=== PATIENT | female | born 1970 | race Caucasian/White ===

== ENCOUNTER 2024-11-30 00:12 | Inpatient (IN) | payer BC ==
[~2024-11-30] VITALS: Ht 162.6 cm; Wt 68.0 kg
[2024-11-30] VITALS (8 sets, daily range): BP systolic 128–181; BP diastolic 85–110; PULSE 91–116; RESP 18; O2SAT 99
[2024-11-30 00:54] LABS: ALANINE AMINOTRANSFERASE 26 U/L (12-78); ALBUMIN 4.8 G/DL (3.4-5.0); ALBUMIN/GLOBULIN RATIO 1.2 (1.1-1.5); ALKALINE PHOSPHATASE 75 IU/L (46-116); ANION GAP 12 (8-16); ASPARTATE AMINO TRANSFERASE 22 U/L (10-37); BILIRUBIN,TOTAL 0.6 MG/DL (0.1-1.0); BLOOD UREA NITROGEN 10 MG/DL (7-18); BUN/CREATININE RATIO 9.9 (10.0-20.0); CALCIUM 9.9 MG/DL (8.5-10.1); CHLORIDE 97 MMOL/L (99-107); CREATININE 1.01 MG/DL (0.40-0.90); GLUCOSE 119 MG/DL (70-104); POTASSIUM 3.9 MMOL/L (3.5-5.1); SODIUM 136 MMOL/L (135-145); TOTAL CARBON DIOXIDE 26.9 MMOL/L (24-32); TOTAL PROTEIN 8.9 G/DL (6.4-8.2); eCRCL 56 ML/MIN; eGFR 57 ML/MIN
[2024-11-30 00:57] LABS: MAGNESIUM 2.5 MG/DL (1.5-2.4)
[2024-11-30] MEDS ORDERED: potassium Cl 40MEQ/1/2NS 520ml 520 ML IV PRN (01:15)
[2024-11-30] MEDS ORDERED: mag hydrox/Alum hydrox/simeth 30ml oral suspension PO PRN (01:15)
[2024-11-30] MEDS ORDERED: acetaminophen 325mg tablet PO PRN (01:15)
[2024-11-30] MEDS ORDERED: magnesium Cl slow-release 64mg tablet PO PRN (01:15)
[2024-11-30] MEDS ORDERED: morphine 2 MG/ML inj. syringe IV PRN (01:15)
[2024-11-30] MEDS ORDERED: magnesium sulf-water 4G/100mL 100 ML IV PRN (01:15)
[2024-11-30] MEDS ORDERED: potassium Cl 20 mEq SR tablet PO PRN (01:15)
[2024-11-30] MEDS ORDERED: bisacodyl 10mg suppository rectal RC PRN (01:15)
[2024-11-30] MEDS ORDERED: magnesium sulf-water 2g/50mL 50 ML IV PRN (01:15)
[2024-11-30] MEDS ORDERED: magnesium hydroxide 30ml (MOM) UD suspension PO PRN (01:15)
[2024-11-30 01:20] LABS: C-REACTIVE PROTEIN < 0.05 MG/DL (0.0-0.5)
[2024-11-30] MEDS ORDERED: heparin 10,000 units/1 ML INJ IV ONE (01:30)
[2024-11-30] MEDS ORDERED: nitroGLYCERIN 0.4mg SUBLingual tab SL PRN ×2 (01:40→11:45)
[2024-11-30] MEDS ORDERED: DEXTROSE 15 GM of carb/4 tabs (each vial/BOTTLE has 4 tablets) PO PRN ×2 (02:00)
[2024-11-30] MEDS ORDERED: glucagon, human recombinant 1mg kit SUBCUT PRN (02:00)
[2024-11-30] MEDS ORDERED: dextrose 50%-water 50ml dispensing syringe IV PRN (02:00)
[2024-11-30] MEDS: MESSAGE TO NURSING IV ONE ×2 (02:01→08:36)
[2024-11-30] MEDS: aspirin 81mg tab.chew PO ONE (02:13)
[2024-11-30] MEDS: heparin 10,000 units/1 ML INJ IV ONE (02:20)
[2024-11-30] MEDS: normal saline 1000ml 1,000 ML IV SCH (02:21)
[2024-11-30] MEDS: heparin 25,000 UNIT/250ml bag 250 ML IV PRN (02:24)
[2024-11-30 02:50] LABS: HEMOGLOBIN A1C 6.4 % (4.5-6.2)
[2024-11-30] MEDS ORDERED: POTA10CA95 PO (02:52)
[2024-11-30] MEDS ORDERED: LOSA25TA41 PO (02:52)
[2024-11-30] MEDS ORDERED: INSU3INS2 SUBCUT (02:52)
[2024-11-30] MEDS ORDERED: METF-438 PO (02:52)
[2024-11-30] MEDS ORDERED: TRAZ-251 PO (02:52)
[2024-11-30 02:54] LABS: PROTHROMBIN TIME 10.6 SECONDS (9.0-12.0)
[2024-11-30 02:57] LABS: APTT 24 SECONDS (22-32)
[2024-11-30 03:02] LABS: POTASSIUM 3.9 MMOL/L (3.5-5.1)
[2024-11-30] MEDS: morphine 2 MG/ML inj. syringe IV PRN (03:15)
[2024-11-30 05:00] LABS: BILIRUBIN,URINE NEGATIVE (Neg); CLARITY,URINE CLEAR (Clear); COLOR,URINE YELLOW (Yellow); GLUCOSE, URINE NEGATIVE (Neg); KETONES,URINE 15 mg/dl (Neg); LEUKOCYTE ESTERASE ,URINE NEGATIVE (Neg); NITRITES, URINE NEGATIVE (Neg); OCCULT BLOOD,URINE SMALL (Neg); PH,URINE 7.5 (4.8-8.0); PROTEIN,URINE >=300 mg/dl (Neg); UA COLLECTION TYPE VOIDED; UROBILINOGEN,URINE 0.2 E.U/dL (0.2-1.0)
[2024-11-30 05:05] LABS: BACTERIA,URINE NONE SEEN /HPF (Neg); MUCUS STRANDS FEW /LPF (Neg); SQUAMOUS EPITHELIAL CELL,UR NONE SEEN /LPF (FEW); WBC,URINE 0-4 /HPF (0-4)
[2024-11-30] MEDS: INSULIN LISPRO 100 UNIT/ML INSULN.PEN MULTI-DOSE SQ SCH (07:00)
[2024-11-30] MEDS: dextrose 50%-water 50ml dispensing syringe IV PRN (07:54)
[2024-11-30] MEDS: aspirin 81mg, enteric-coated 1 TAB TABLET.DR PO SCH (08:07)
[2024-11-30] MEDS: docusate sod 100mg capsule PO SCH (08:07)
[2024-11-30] MEDS: metoprolol tartrate 25mg tablet PO SCH (08:07)
[2024-11-30] MEDS: heparin 10,000 units/1 ML INJ IV PRN (08:34)
[2024-11-30 10:06] LABS: BASOPHILS # (AUTO) 0.1 X10'3 (0-0.2); BASOPHILS % (AUTO) 0.5 % (0-1); EOSINOPHILS % (AUTO) 0.2 % (0-6); HEMATOCRIT 43.6 % (35.0-45.0); HEMOGLOBIN 14.4 g/dl (12.0-16.0); LYMPHOCYTES # (AUTO) 5.4 X10'3 (1.1-4.8); LYMPHOCYTES % (AUTO) 29.3 % (21-51); MEAN CORPUSCULAR HEMOGLOBIN 29.1 PG (27.0-31.0); MEAN CORPUSCULAR VOLUME 88.2 FL (78-98); MEAN PLATELET VOLUME 6.7 FL (7.4-10.4); MONOCYTES # (AUTO) 1.7 X10'3 (0-0.9); NEUTROPHILS # (AUTO) 11.2 X10'3 (1.8-7.7); PLATELET COUNT 465 X10'3 (140-440); RED BLOOD COUNT 4.94 X10'6 (4.20-5.60); WHITE BLOOD COUNT 18.4 X10'3 (4.5-11.0)
[2024-11-30 10:23] LABS: ALANINE AMINOTRANSFERASE 24 U/L (12-78); ALBUMIN 4.2 G/DL (3.4-5.0); ALBUMIN/GLOBULIN RATIO 1.2 (1.1-1.5); ALKALINE PHOSPHATASE 66 IU/L (46-116); ANION GAP 9 (8-16); ASPARTATE AMINO TRANSFERASE 13 U/L (10-37); BILIRUBIN,TOTAL 0.7 MG/DL (0.1-1.0); BLOOD UREA NITROGEN 12 MG/DL (7-18); BUN/CREATININE RATIO 12.8 (10.0-20.0); CALCIUM 9.3 MG/DL (8.5-10.1); CHLORIDE 103 MMOL/L (99-107); CREATININE 0.94 MG/DL (0.40-0.90); GLUCOSE 90 MG/DL (70-104); POTASSIUM 3.3 MMOL/L (3.5-5.1); SODIUM 140 MMOL/L (135-145); TOTAL PROTEIN 7.7 G/DL (6.4-8.2); eCRCL 60 ML/MIN; eGFR 62 ML/MIN
[2024-11-30] MEDS: K and/or MAG REPLACEMENT MC SCH (10:32)
[2024-11-30] MEDS ORDERED: metoprolol tartrate 1mg/ml inj IV PRN (11:45)
[2024-11-30] MEDS: potassium Cl 20 mEq SR tablet PO PRN (13:11)
[2024-11-30] MEDS ORDERED: TIRZ5PEN SUBCUT (13:57)
[2024-11-30] MEDS ORDERED: LOSA100T58 PO (13:57)
[2024-11-30] MEDS ORDERED: DULO60CA65 PO (13:57)
[2024-11-30] MEDS: regadenoson 0.4mg/5ml syringe IV PRN (14:28)
[2024-11-30] MEDS: ondansetron/PF 4mg/2ml inj IV PRN (15:30)
[2024-11-30] MEDS: aminophylline 500mg/20ml vial IV PRN (15:54)
[2024-11-30] MEDS: hydrALAZINE 20mg/ml inj. IV ONE ×2 (15:56→22:00)
[2024-11-30] MEDS ORDERED: morphine 4 MG/ML inj SYRINge IV ONE (16:20)
[2024-11-30] MEDS: metoprolol tartrate 1mg/ml inj IV ONE (16:30)
[2024-11-30] MEDS: HYDROmorphone/PF 0.2 MG/ML SYRINGE IV PRN (18:04)
[2024-11-30] MEDS: hydrALAZINE 20mg/ml inj. IV PRN (18:50)
[2024-11-30] MEDS: HYDROcodone/acetaminophen 5mg/325mg tablet PO PRN (19:36)
[2024-11-30] MEDS: amLODIPine 5mg tablet PO ONE ×2 (20:38→22:48)
[2024-11-30] MEDS: diphenhydrAMINE 50 mg/ml inj IV ONE (20:40)
[2024-12-01] VITALS (7 sets, daily range): BP systolic 106–156; BP diastolic 68–99; PULSE 85–128; RESP 14–19; TEMP 97.3–98; O2SAT 97–100
[2024-12-01 02:52] LABS: BASOPHILS # (AUTO) 0.2 X10'3 (0-0.2); BASOPHILS % (AUTO) 0.9 % (0-1)
[2024-12-01 02:54] LABS: EOSINOPHILS % (AUTO) 0.1 % (0-6); HEMATOCRIT 46.5 % (35.0-45.0); HEMOGLOBIN 15.7 g/dl (12.0-16.0); LYMPHOCYTES # (AUTO) 4.1 X10'3 (1.1-4.8); MEAN CORPUSCULAR HEMOGLOBIN 29.4 PG (27.0-31.0); MEAN CORPUSCULAR HGB CONC 33.6 g/dL (33.0-36.5); MEAN CORPUSCULAR VOLUME 87.4 FL (78-98); MONOCYTES # (AUTO) 1.8 X10'3 (0-0.9); MONOCYTES % (AUTO) 8.5 % (2-12); NEUTROPHILS # (AUTO) 14.5 X10'3 (1.8-7.7); NEUTROPHILS % (AUTO) 70.5 % (42-75); PLATELET COUNT 381 X10'3 (140-440); RED BLOOD COUNT 5.32 X10'6 (4.20-5.60); RED CELL DISTRIBUTION WIDTH 13.9 % (11.5-14.5); WHITE BLOOD COUNT 20.6 X10'3 (4.5-11.0)
[2024-12-01 03:20] LABS: ALANINE AMINOTRANSFERASE 25 U/L (12-78); ALBUMIN 4.2 G/DL (3.4-5.0); ALBUMIN/GLOBULIN RATIO 1.1 (1.1-1.5); ALKALINE PHOSPHATASE 73 IU/L (46-116); ANION GAP 12 (8-16); ASPARTATE AMINO TRANSFERASE 22 U/L (10-37); BILIRUBIN,TOTAL 0.7 MG/DL (0.1-1.0); BLOOD UREA NITROGEN 13 MG/DL (7-18); BUN/CREATININE RATIO 16.3 (10.0-20.0); CALCIUM 9.1 MG/DL (8.5-10.1); CHLORIDE 98 MMOL/L (99-107); CHOL/HDL RATIO 3.4 (0.00-4.99); CHOLESTEROL 237 MG/DL (0-200); GLUCOSE 146 MG/DL (70-104); HDL CHOLESTEROL 70 MG/DL (35-60); LDL CHOLESTEROL 142 MG/DL (50-100); POTASSIUM 4.2 MMOL/L (3.5-5.1); SODIUM 133 MMOL/L (135-145); TOTAL CARBON DIOXIDE 22.7 MMOL/L (24-32); TRIGLYCERIDES 128 MG/DL (20-135); eCRCL 70 ML/MIN; eGFR 75 ML/MIN
[2024-12-01 17:32] LABS: THYROID STIMULATING HORMONE 3.38 ulU/ml (0.34-4.50)
[2024-12-01] MEDS: metoprolol tartrate 25mg tablet PO SCH (20:00)
[2024-12-01] MEDS: traZODone 50mg tablet PO SCH (20:41)
[2024-12-02 02:00] VITALS: BP 124/83; PULSE 84; RESP 15; TEMP 97.7; O2SAT 98
[2024-12-02 06:00] VITALS: BP 145/87; PULSE 77; RESP 16; TEMP 97.3; O2SAT 98
[2024-12-02] MEDS: duloxetine 30mg CAPSULE.DR PO SCH (07:47)
[2024-12-02] MEDS: metFORMIN 500mg tablet PO SCH (07:47)
[2024-12-02] MEDS: losartan 50mg tablet PO SCH (07:48)
[2024-12-02 07:53] LABS: BASOPHILS # (AUTO) 0.1 X10'3 (0-0.2); BASOPHILS % (AUTO) 0.7 % (0-1); EOSINOPHILS # (AUTO) 0.1 X10'3 (0-0.9); EOSINOPHILS % (AUTO) 0.7 % (0-6); HEMATOCRIT 43.7 % (35.0-45.0); HEMOGLOBIN 14.2 g/dl (12.0-16.0); LYMPHOCYTES # (AUTO) 4.4 X10'3 (1.1-4.8); LYMPHOCYTES % (AUTO) 33.6 % (21-51); MEAN CORPUSCULAR HEMOGLOBIN 28.7 PG (27.0-31.0); MEAN CORPUSCULAR HGB CONC 32.4 g/dL (33.0-36.5); MEAN CORPUSCULAR VOLUME 88.7 FL (78-98); MEAN PLATELET VOLUME 6.9 FL (7.4-10.4); MONOCYTES # (AUTO) 1.2 X10'3 (0-0.9); MONOCYTES % (AUTO) 9.5 % (2-12); NEUTROPHILS # (AUTO) 7.2 X10'3 (1.8-7.7); NEUTROPHILS % (AUTO) 55.5 % (42-75); PLATELET COUNT 439 X10'3 (140-440); RED BLOOD COUNT 4.93 X10'6 (4.20-5.60); RED CELL DISTRIBUTION WIDTH 13.7 % (11.5-14.5)
[2024-12-02 08:00] VITALS: RESP 16; O2SAT 99
[2024-12-02 08:18] LABS: ANION GAP 9 (8-16); BLOOD UREA NITROGEN 12 MG/DL (7-18); CHLORIDE 108 MMOL/L (99-107); GLUCOSE 157 MG/DL (70-104); POTASSIUM 4.3 MMOL/L (3.5-5.1); SODIUM 141 MMOL/L (135-145); TOTAL CARBON DIOXIDE 24.2 MMOL/L (24-32)
[2024-12-02 08:19] LABS: ALANINE AMINOTRANSFERASE 21 U/L (12-78); ALBUMIN 3.6 G/DL (3.4-5.0); ALKALINE PHOSPHATASE 60 IU/L (46-116); ASPARTATE AMINO TRANSFERASE 14 U/L (10-37); BILIRUBIN,TOTAL 0.8 MG/DL (0.1-1.0); BUN/CREATININE RATIO 13.3 (10.0-20.0); CALCIUM 9.1 MG/DL (8.5-10.1); TOTAL PROTEIN 7.1 G/DL (6.4-8.2); eCRCL 62 ML/MIN; eGFR 65 ML/MIN
[2024-12-02 08:23] LABS: D-DIMER 0.57 MG/L FEU (0-0.50)
[2024-12-02] MEDS ORDERED: ATOR20TA66 PO (08:27)
[2024-12-02] MEDS ORDERED: ASPI-1071 PO (08:27)
[2024-12-02] MEDS ORDERED: LOP25T PO (08:27)
[2024-12-02 11:00] VITALS: BP 133/92; PULSE 80; RESP 13; TEMP 97.2; O2SAT 99
== END 2024-12-02 12:40 | disposition home or self-care (01) | DRG 637 ==
LOC: ER 00:13 → ED HOLD 01:17 → EDBEDREQ 12-01 06:18 → PCU 3S 12-01 06:30
PROVIDERS: ADMIT Internal Medicine Pulmonary Disease; ATTEND Internal Medicine
PROC: 4A02XM4 Measurement of Cardiac Total Activity, External Approach (ICD-10-PCS; principal; 2024-11-30)
PROC: 3E033HZ Introduction of Radioactive Substance into Peripheral Vein, Percutaneous Approach (ICD-10-PCS; 2024-11-30)
DX: E11.649 Type 2 diabetes mellitus with hypoglycemia without coma (principal); I21.A1 Myocardial infarction type 2; I49.9 Cardiac arrhythmia, unspecified; D72.829 Elevated white blood cell count, unspecified; G90.9 Disorder of the autonomic nervous system, unspecified
CPT/HCPCS: 36415; 70450; 71045; 78452; 80053; 80061; 81001; 82948; 83036; 83735; 83880; 84132; 84145; 84443; 84484; 85025; 85379; 85610; 85730; 86140; 87081; 93005; 93017; 93306; 93880; 99285; A9500; G0378; J0280; J0360; J1171; J1200; J1644; J1815; J2270; J2405; J2785; J3490; J7030